=== PATIENT | female | born 1950 ===

== ENCOUNTER 2016-06-22 21:49 | Emergency (ER) | payer MEDICARE ==
[2016-06-22 21:50] VITALS: BMI 21.9
[2016-06-22 23:00] LABS: EOS # 0.3 K/uL (0.0-0.7); MEAN CORPUSCULAR HGB CONC 33.5 g/dL (33.0-37.0); MONO # 0.4 K/uL (0.0-0.8); WHITE BLOOD COUNT 6.9 K/uL (4.8-10.8)
[2016-06-22 23:04] LABS: CHLORIDE 104 mmol/L (98-107); SODIUM 140 mmol/L (132-148)
[2016-06-22 23:06] LABS: BILIRUBIN,TOTAL 0.6 mg/dL (0.2-1.3); GFR AFRICAN-AMERICAN > 60
[2016-06-22 23:07] LABS: ALB/GLOB RATIO 1.4 (1.0-2.1); ALKALINE PHOSPHATASE 83 U/L (38-126); ALT/SGPT 35 U/L (9-52); AST/SGOT 35 U/L (14-36); BLOOD UREA NITROGEN 22 mg/dL (7-17); CALCIUM 8.7 mg/dl (8.6-10.4); CARBON DIOXIDE 26 mmol/L (22-30); GLUCOSE,RANDOM 104 mg/dL (65-105); TOTAL PROTEIN 7.1 g/dL (6.3-8.3)
[2016-06-22 23:08] LABS: MAGNESIUM 2.2 mg/dL (1.6-2.3)
[2016-06-22 23:15] LABS: PARTIAL THROMBOPLASTIN TIME 30 SECONDS (21-34)
[2016-06-22] MEDS ORDERED: Sodium Chloride 0.9% 1,000 ML IV ONE (23:46)
[2016-06-22] MEDS ORDERED: Sodium Chloride 0.9% 1,000 ML ONE (23:49)
[2016-06-22 23:56] LABS: BASO # 0.1 K/uL (0.0-0.2); BASO % 0.8 % (0.0-2.0); EOS % 3.9 % (0.0-4.0); HEMATOCRIT 41.3 % (34.0-47.0); LYMPH # 1.8 K/uL (1.0-4.3); LYMPH % 25.7 % (20.0-40.0); MEAN CELL VOLUME 90.3 fL (81.0-99.0); MEAN CORPUSCULAR HEMOGLOBIN 30.3 pg (27.0-31.0); MEAN PLATELET VOLUME 7.4 fL (7.2-11.7); MONO % 5.5 % (0.0-10.0); RED CELL DISTRIBUTION WIDTH 13.3 % (11.5-14.5)
--- NOTE | 2016-06-23 00:42 | C.PDOC ---
Time Seen by Provider: 06/22/16 22:26 Chief Complaint (Nursing): Shortness Of Breath History Per: Patient, Family Onset/Duration Of Symptoms: Days (5) Current Symptoms Are (Timing): Still Present Initiating Event: Upper Respiratory Illness Severity: Moderate Associated Symptoms: Other (Cough) Reports Recently: Treated By A Physician Additional History Per: Prior Records Past Medical History Reviewed: Historical Data, Nursing Documentation, Vital Signs Vital Signs: Last Vital Signs Temp 98 F 06/22/16 21:58 Pulse 97 H 06/22/16 21:58 Resp 18 06/22/16 21:58 BP 121/86 06/22/16 21:58 Pulse Ox 100 06/22/16 21:58 - Medical History PMH: Arthritis, Asthma, Bronchitis, Diverticulitis, Osteoporosis, Rheumatoid Arthritis Surgical History: Hernia Repair - [facility] Procedures COLONOSCOPY (05/07/13) ESOPHAGOGASTRODUODENOSCOPY [EGD] W/CLOSED BIOPSY (03/26/13) TETANUS TOXOID ADMINIST (07/07/14) Family History: States: Unknown Family Hx - Social History Hx Tobacco Use: No Hx Alcohol Use: No Hx Substance Use: No - Immunization History Hx Tetanus Toxoid Vaccination: No Hx Influenza Vaccination: No Hx Pneumococcal Vaccination: No Review Of Systems Except As Marked, All Systems Reviewed And Found Negative. Constitutional: Negative for: Fever, Weakness Cardiovascular: Negative for: Chest Pain Respiratory: Positive for: Cough, Shortness of Breath. Negative for: Hemoptysis Gastrointestinal: Negative for: Vomiting, Abdominal Pain Musculoskeletal: Negative for: Neck Pain, Back Pain, Leg Pain Skin: Negative for: Rash Neurological: Negative for: Weakness, Numbness, Seizures, Altered Mental Status Physical Exam - Physical Exam Appears: Non-toxic, No Acute Distress Skin: Normal Color, Warm, Dry, No Rash Head: Atraumatic, Normacephalic Eye(s): bilateral: PERRL, EOMI Neck: Normal ROM, Supple Cardiovascular: Rhythm Regular, No Murmur Respiratory: Normal Breath Sounds, No Accessory Muscle Use Gastrointestinal/Abdominal: Soft, No Tenderness Back: No CVA Tenderness Extremity: Normal ROM, No Pedal Edema, No Calf Tenderness Neurological/Psych: Oriented x3, Normal Motor, Normal Sensation ED Course And Treatment - Laboratory Results Result Diagrams: 06/22/16 22:53 06/22/16 22:53 Lab Interpretation: No Acute Changes ECG: Interpreted By Me, Viewed By Me ECG Rhythm: Sinus Rhythm, Nonspecific Changes Rate From EC O2 Sat by Pulse Oximetry: 100 Pulse Ox Interpretation: Normal - Radiology CXR: Interpreted by Me, Viewed By Me CXR Interpretation: Yes: No Acute Disease - CT Scan/US Limited bedside TT echocardiogram Other Rad Studies (CT/US): U/S Performed By Me CT/US Interpretation: No pericardial effusion. Reassessment Condition: Improved Disposition Counseled Patient/Family Regarding: Studies Performed, Diagnosis, Need For Followup, Rx Given - Disposition Referrals: Nick Reyes MD [Family Provider] - Disposition: HOME/ ROUTINE Disposition Time: 00:43 Condition: IMPROVED Additional Instructions: Follow up with your doctor for further evaluation and treatment. Return to the ER if you develop chest pain, fever, shortness of breath, worsening of symptoms or if you have any other concerns. Prescriptions: predniSONE [predniSONE Tab] 2 tab PO DAILY #8 tab Instructions: Asthma (ED) Print Language: UKRAINIAN - Clinical Impression Clinical Impression: Cough, Asthma
[2016-06-23 00:57] VITALS: BP 130/78; PULSE 92; RESP 20; TEMP 97.8; O2SAT 98
--- NOTE | 2016-06-23 08:37 | RAD ---
HISTORY: SOB COMPARISON: 06/19/2016 TECHNIQUE: Chest PA and lateral FINDINGS: LUNGS: There is somewhat linear or band -like opacity at the right lung base, not clearly appreciated in lateral projection. This most likely represents subsegmental atelectasis. However, pneumonia cannot be excluded. Followup is advised. No other abnormal pulmonary opacity is seen elsewhere. PLEURA: No significant pleural effusion identified. No pneumothorax apparent. CARDIOVASCULAR: Normal. OSSEOUS STRUCTURES: No significant abnormalities. VISUALIZED UPPER ABDOMEN: Normal. OTHER FINDINGS: None. IMPRESSION: Probable subsegmental atelectasis at right lung base. Cannot rule out pneumonia. Followup advised.
--- NOTE | 2016-06-23 12:03 | CARD ---
APPROVED REPORT EKG Measurement Heart [id number] [id number] <Conclusion> Normal sinus rhythm Low voltage QRS Borderline ECG
== END 2016-06-23 00:57 | disposition home or self-care (01) ==
LOC: C.ER 21:49
DX: J45.909 Unspecified asthma, uncomplicated (principal)
CPT/HCPCS: 71020; 80053; 83735; 83880; 84484; 85025; 85378; 85610; 85730; 93005; 96360; 99285; J7040

== ENCOUNTER 2016-10-12 10:05 | Day surgery (SDC) | payer MEDICARE ==
[2016-09-27 08:13] VITALS: BMI 23.4
[2016-10-12] MEDS ORDERED: Lactated Ringer's 1,000 ML IV ONE (12:07)
[2016-10-12] MEDS ORDERED: Propofol 10 mg/ml Inj (20 ML) ONE (12:08)
[2016-10-12] MEDS ORDERED: Midazolam 2 MG/2 ML VIAL ONE (12:08)
[2016-10-12] MEDS: Ciprofloxacin 400mg/200ml D5W 400 MG/200 ML BAG IVPB ONE ×2 (12:10→12:18)
[2016-10-12] MEDS ORDERED: HYDROmorphone 0.5 mg/0.5 ml ISec IVP PRN (12:42)
--- NOTE | 2016-10-12 12:46 | PCM.SURG1 ---
Surgeon's Initial Post Op Note - Surgeon's Notes Surgeon: dano Head Packager: none Type of Anesthesia: IV Sedation Anesthesia Administered By: Pre-Operative Diagnosis: urinary retention. Operative Findings: urethritis.meatal stenosiscal.#20 Post-Operative Diagnosis: urinary retention.urethritis.meatal stenosis. Operation Performed: cystoscopy urethral dilatation#30 Specimen/Specimens Removed: none Estimated Blood Loss: EBL {In ML}: 0 Blood Products Given: N/A Drains Used: No Drains Post-Op Condition: Good Date of Surgery/Procedure: 10/12/16 Time of Surgery/Procedure: 12:50
[2016-10-12 14:23] VITALS: BP 92/58; PULSE 58; RESP 18; TEMP 97.6; O2SAT 97
--- NOTE | 2016-10-16 09:19 | OP ---
DATE: 10/12/2016 PREOPERATIVE DIAGNOSIS: Urinary retention. POSTOPERATIVE DIAGNOSES: Urethritis, meatal stenosis, calibrating #20. OPERATION: Cystoscopy, urethral dilatation, #30 [place] sounds. SURGEON: Dr. Canales. GROSS FINDING: Good bladder capacity. No tumors or stones were observed during emptying or filling of the bladder. Mild trabeculated bladder. Ureteral orifices normally placed in configuration. Urethritis is noted with pseudo polyp at the bladder neck, meatal stenosis. TECHNIQUE: This patient was placed in lithotomy position. External genitalia was prepped and draped in the usual sterile fashion. A #22 was introduced in the bladder. Findings as above. The urethra was dilated #30 [place] sounds. No bleeding was present during the procedure. The patient tolerated the procedure well and returned to recovery room in satisfactory condition. Kristofer Canales MD
== END 2016-10-12 14:15 | disposition home or self-care (01) ==
LOC: C.SDS 10:05
PROVIDERS: ATTEND Urology
DX: N35.12 Postinfective urethral stricture, not elsewhere classified, female (principal); N34.2 Other urethritis; R33.9 Retention of urine, unspecified
CPT/HCPCS: 52281; J0744; J7120

== ENCOUNTER 2017-03-15 15:52 | Emergency (ER) | payer MEDICARE ==
[2017-03-15 15:52] VITALS: BMI 23.4
[2017-03-15 16:52] VITALS: BP 137/86; PULSE 78; RESP 14; TEMP 97.8; O2SAT 98
[2017-03-15] MEDS ORDERED: Naproxen 550 mg Tab PO STA (17:14)
[2017-03-15] MEDS ORDERED: Naproxen 550 mg Tab PO ONE ×2 (17:27→18:47)
--- NOTE | 2017-03-15 18:04 | C.PDOC ---
History Of Present Illness 66 year old female presents to the ED for evaluation of right>left plantar heel pain that has gradually worsened over the past 1-2 weeks. Patient denies trauma/ injury to the area. Time Seen by Provider: 03/15/17 16:59 Chief Complaint (Nursing): Lower Extremity Problem/Injury History Per: Patient History/Exam Limitations: no limitations Onset/Duration Of Symptoms: Gradual (1-2 weeks ) Current Symptoms Are (Timing): Worse Additional History Per: Patient - Ankle/Foot Description Of Injury: denies: Fell, Struck With Object Past Medical History Reviewed: Historical Data, Nursing Documentation, Vital Signs Vital Signs: Last Vital Signs Temp 97.8 F 03/15/17 16:48 Pulse 78 03/15/17 16:48 Resp 14 03/15/17 16:48 BP 137/86 03/15/17 16:48 Pulse Ox 98 03/15/17 19:08 - Medical History PMH: Arthritis, Asthma, Bronchitis, Diverticulitis, Gastritis, Hypercholesterolemia, Osteoporosis, Rheumatoid Arthritis Denies: Chronic Kidney Disease Surgical History: Endoscopy, Hernia Repair - [facility] Procedures COLONOSCOPY (05/07/13) ESOPHAGOGASTRODUODENOSCOPY [EGD] W/CLOSED BIOPSY (03/26/13) TETANUS TOXOID ADMINIST (07/07/14) Family History: States: Unknown Family Hx - Social History Hx Tobacco Use: No Hx Alcohol Use: No Hx Substance Use: No - Immunization History Hx Tetanus Toxoid Vaccination: No Hx Influenza Vaccination: Yes Hx Pneumococcal Vaccination: Yes Review Of Systems Musculoskeletal: Positive for: Other (right>left plantar heel pain ) Physical Exam - Physical Exam Appears: Non-toxic, No Acute Distress Skin: Normal Color, Warm, Dry, No Rash Extremity: Normal ROM, Tenderness (to right heel plantar region on palpation ), Capillary Refill (less than 2 seconds ), No Deformity, No Swelling Neurological/Psych: Oriented x3, Normal Speech, Normal Cognition Gait: Steady ED Course And Treatment O2 Sat by Pulse Oximetry: 98 (on RA) Pulse Ox Interpretation: Normal - Other Rad b/l feet X-Ray: Interpreted by Me (no fx/no heel spurs) Progress Note: naproxyn PO, ice to plantar foot Reevaluation Time: 18:03 Reassessment Condition: Improved Medical Decision Making Medical Decision Making: ? plantar fasciitis Disposition Doctor Will See Patient In The: Office Counseled Patient/Family Regarding: Studies Performed, Diagnosis - Disposition Referrals: Nick Reyes MD [Medical Doctor] - Jw Christianson DPM [Staff Provider] - Graham Christianson DPM [Staff Provider] - Disposition: HOME/ ROUTINE Disposition Time: 18:03 Condition: GOOD Additional Instructions: sigue hielo en la parte del pie doloroso Sigue Naproxyn norberto ya esta tomando. No pone nada caliente en el pie Sigue con musa medico o' con el Podiatra, Dr. Christianson-Podiatria. Instructions: Plantar Fasciitis (ED), Heel Spur (ED) Forms: [employer] (American) Print Language: BULGARIAN - Clinical Impression Clinical Impression: Heel pain - Scribe Statement The provider has reviewed the documentation as recorded by the Scribe (Mahi Sam) Provider Attestation: All medical record entries made by the Scribe were at my direction and personally dictated by me. I have reviewed the chart and agree that the record accurately reflects my personal performance of the history, physical exam, medical decision making, and the department course for this patient. I have also personally directed, reviewed, and agree with the discharge instructions and disposition.
--- NOTE | 2017-03-16 07:39 | RAD ---
PROCEDURE: Bilateral Feet Radiographs. HISTORY: b/l plantar heel pain, spurs vs fasciitis COMPARISON: None. FINDINGS: BONES: There is no acute fracture or destructive bony lesion appreciated bilaterally. No prominent plantar calcaneal spurring at either calcaneus. JOINTS: Mild hallux valgus deformities are identified bilaterally. Further, mild cortical sclerosis appreciate throughout the joints of the midfoot forefoot and hindfoot compatible with degenerative joint disease. None of the degenerative changes appear advanced. SOFT TISSUES: Right Foot: Normal. Left Foot: Normal. OTHER FINDINGS: None. IMPRESSION: Mild but diffuse degenerative joint disease seen bilaterally in both feet. No acute fracture dislocation or subluxation identified. Mild bilateral hallux valgus deformities noted.
== END 2017-03-15 18:47 | disposition home or self-care (01) ==
LOC: C.ER 15:52
DX: M79.671 Pain in right foot (principal); M79.672 Pain in left foot